=== PATIENT | male | born 1950 | race Caucasian/White ===

== ENCOUNTER 2016-10-26 11:34 | Emergency (ER) | payer OTHER ==
[2016-10-26] MEDS ORDERED: ONDANSETRON 4 MG/2 ML VIAL ONE (11:49)
--- NOTE | 2016-10-26 11:52 | CPEKG ---
Heart Rate: 72 RR Interval: 833 P-R Interval: 160 QRSD Interval: 104 QT Interval: 440 QTC Interval: 482 P Ola: 47 QRS Ola: 62 T Wave Ola: 45 EKG Severity - BORDERLINE ECG - EKG Impression: SINUS RHYTHM EKG Impression: BORDERLINE PROLONGED QT INTERVAL Electronically Signed By: Torin Wharton 26-Oct-2016 15:43:03
[2016-10-26] MEDS ORDERED: NS 1,000 ML IV ONE ×2 (11:59→14:22)
[2016-10-26] MEDS ORDERED: MECLIZINE HCL 25 MG TAB PO ONE ×2 (12:00→15:15)
[2016-10-26] MEDS ORDERED: ONDANSETRON 4 MG/2 ML VIAL IVP ONE (12:00)
[2016-10-26 12:07] LABS: % IMMATURE GRANULYOCYTES 0.5 % (0.0-1.1); ABSOLUTE IMMATURE GRANULOCYTES 0.03 10^3/uL (0.00-0.10); ADD DIFF? NO; ADD MORPH? NO; ADD SCAN? NO; ATYPICAL LYMPHOCYTE FLAG 10 (0-99); FRAGMENT RBC FLAG 0 (0-99); HEMATOCRIT 45.8 % (40.0-51.0); HEMOGLOBIN 16.3 g/dL (13.7-17.5); LEFT SHIFT FLG 10 (0-99); LIPEMIA HEMOLYSIS FLAG 90 (0-99); MEAN CELL HEMOGLOBIN 29.5 pg (27.9-34.1); MEAN CELL HEMOGLOBIN CONCENTR. 35.6 g/dL (32.4-36.7); MEAN PLATELET VOLUME 9.6 fL (8.7-11.7); PLATELET CLUMPS FLAG 10 (0-99); PLATELET COUNT 199 10^3/uL (150-400); RED BLOOD CELL COUNT 5.52 10^6/uL (4.40-6.38); RED CELL DISTRIBUTION WIDTH 12.1 % (11.5-15.2)
--- NOTE | 2016-10-26 12:09 | EDPHY ---
HPI/HX/ROS/PE/MDM Narrative: CHIEF COMPLAINT: Dizziness, nausea HPI: The patient is a 66 y/o male arriving with his family member complaining of dizziness and lightheadedness onset this morning. His symptoms are aggravated by opening his eyes, looking around, or any movement. His symptoms are alleviated by lying still with his eyes closed in bed. He has associated nausea with an episode of vomiting. He has a history of vertigo several years ago and say his symptoms feel similar. He denies headache, vision changes, chest pain, or fever. No other pertinent medical history. REVIEW OF SYSTEMS: Aside from elements discussed in the HPI, a comprehensive 10-point review of systems was reviewed and is negative. PMH: Vertigo SOCIAL HISTORY: Family member at bedside PHYSICAL EXAM: General:Patient is alert, in no acute distress. ENT:Eyes are normal to inspection. KRISTI. EOMI intact. No nystagmus. ENT inspection normal. Neck: Normal inspection. Full range of motion. Respiratory:No respiratory distress. Breath sounds normal bilaterally. Cardiovascular: Regular rate and rhythm. Strong peripheral pulses. Normal cap refill. Abdomen:The abdomen is nontender to palpation. There are no peritoneal signs. There are normal bowel sounds. Back: Normal to inspection. No tenderness to palpation. Skin: Normal color. No rash. Warm and dry. Extremities: Normal appearance. Full range of motion. Neuro: Oriented x3. Normal motor function. Normal sensory function. Normal [id number]. ED Course: IV established. Labs drawn including CBC, CHEM, troponin. 1L IV NS, 4mg IV Zofran, and 50mg PO Meclizine administered for symptoms. EKG ordered. The 12 lead EKG was interpreted by myself. See hard copy and/or "tracemaster" electronic copy for interpretation. 1430: Labs and EKG unremarkable. Will attempt to ambulate patient to see if symptoms have improved. On re-evaluation, patient states he is still unable to stand up or ambulate secondary to dizziness and nausea. We will treat him with an additional dose of meclizine. I recommended admission to the hospital, but the patient requests a few more hours of treatment here in the emergency department. I have signed the patient out to Dr. Arthur Mauro. I see no evidence for cerebellar CVA, acute coronary syndrome, head trauma or intracranial bleed. - Data Points Laboratory Results: Laboratory Results 10/26/16 11:53 10/26/16 11:53 10/26/16 11:53 WBC 6.52 10^3/uL (3.80-9.50) RBC 5.52 10^6/uL (4.40-6.38) Hgb 16.3 g/dL (13.7-17.5) Hct 45.8 % (40.0-51.0) MCV 83.0 fL (81.5-99.8) MCH 29.5 pg (27.9-34.1) MCHC 35.6 g/dL (32.4-36.7) RDW 12.1 % (11.5-15.2) Plt Count 199 10^3/uL (150-400) MPV 9.6 fL (8.7-11.7) Neut % (Auto) 63.5 % (39.3-74.2) Lymph % (Auto) 30.5 % (15.0-45.0) Bay % (Auto) 4.8 % (4.5-13.0) Eos % (Auto) 0.2 L % (0.6-7.6) Baso % (Auto) 0.5 % (0.3-1.7) Nucleat RBC Rel Count 0.0 % (0.0-0.2) Absolute Neuts (auto) 4.15 10^3/uL (1.70-6.50) Absolute Lymphs (auto) 1.99 10^3/uL (1.00-3.00) Absolute Monos (auto) 0.31 10^3/uL (0.30-0.80) Absolute Eos (auto) 0.01 L 10^3/uL (0.03-0.40) Absolute Basos (auto) 0.03 10^3/uL (0.02-0.10) Absolute Nucleated RBC 0.00 10^3/uL (0-0.01) Immature Gran % 0.5 % (0.0-1.1) Immature Gran # 0.03 10^3/uL (0.00-0.10) Sodium 143 mEq/L (134-144) Potassium 3.8 mEq/L (3.5-5.2) Chloride 108 mEq/L (97-110) Carbon Dioxide 23 mEq/l (22-31) Anion Gap 12 mEq/L (8-16) BUN 18 mg/dL (7-23) Creatinine 1.1 mg/dL (0.7-1.3) Estimated GFR > 60 Glucose 159 H mg/dL (70-100) Calcium 9.1 mg/dL (8.5-10.4) Troponin I < 0.012 ng/mL (0-0.034) Medications Given: Discontinued Medications Sodium Chloride (Ns) 1,000 mls @ 0 mls/hr IV ONCE ONE PRN Reason: Wide Open Stop: 10/26/16 12:00 Last Admin: 10/26/16 12:03 Dose: 1,000 mls Sodium Chloride (Ns) 1,000 mls @ 0 mls/hr IV ONCE ONE PRN Reason: Wide Open Stop: 10/26/16 14:23 Last Admin: 10/26/16 14:24 Dose: 1,000 mls Meclizine HCl (Meclizine Hcl) 50 mg PO EDNOW ONE Stop: 10/26/16 12:01 Last Admin: 10/26/16 12:10 Dose: 50 mg Ondansetron HCl (Zofran) 4 mg IVP EDNOW ONE Stop: 10/26/16 12:01 Last Admin: 10/26/16 12:04 Dose: 4 mg General Time Seen by Provider: 10/26/16 11:53 Initial Vital Signs: Initial Vital Signs Temperature (C) 36.9 C 10/26/16 11:36 Heart Rate 75 10/26/16 11:36 Respiratory Rate 18 10/26/16 11:36 Blood Pressure 165/100 H 10/26/16 11:36 O2 Sat (%) 98 10/26/16 11:36 O2 Delivery Mode Room Air Allergies/Adverse Reactions: No Known Allergies Allergy (Verified 10/26/16 11:36) Home Medications: Medication Instructions Recorded Lipitor 09/11/16 Meclizine HCl [Meclizine HCl 25 mg 50 mg PO BID PRN #14 tab 10/26/16 (RX,OTC)] Ondansetron Odt [Zofran Odt] 4 mg PO Q4PRN PRN #14 tab 10/26/16 Departure - Departure Disposition: Home, Routine, Self-Care Clinical Impression: Vertigo Condition: Good Instructions: Vertigo (ED) Additional Instructions: 1. Take Meclizine as prescribed when needed for dizziness. 2. Use Zofran as prescribed when needed for nausea or vomiting. 3. Follow up with your primary care provider or neurologist for symptoms not improved over the next 2-3 days. 4. Return to the ED for severe headache, chest pain, fainting, or other worsening of condition. Referrals: Kervin Munson MD [Primary Care Provider] - As per Instructions Neftali Sherwood MD [Medical Doctor] - As per Instructions Report Scribed for: Torin Wharton Report Scribed by: Leonor Alamo Date of Report: 10/26/16 Time of Report: 11:56 Physician Review and Approval Statement: Portions of this note were transcribed by an ED scribe. I personally performed the history, physical exam, and medical decision making; and confirm the accuracy of the information in the transcribed note.
[2016-10-26 12:19] LABS: ANION GAP 12 mEq/L (8-16); CALCIUM 9.1 mg/dL (8.5-10.4); CARBON DIOXIDE 23 mEq/l (22-31); CHLORIDE 108 mEq/L (97-110); CREATININE 1.1 mg/dL (0.7-1.3); GLOMERULAR FILTRATION RATE > 60; GLUCOSE 159 mg/dL (70-100); POTASSIUM 3.8 mEq/L (3.5-5.2); SODIUM 143 mEq/L (134-144)
[2016-10-26 12:31] LABS: TROPONIN I < 0.012 ng/mL (0-0.034)
[2016-10-26 14:25] VITALS: O2SAT 96
[2016-10-26 17:08] VITALS: BP 136/79; PULSE 77; RESP 18; TEMP 97.5
== END 2016-10-26 17:10 | disposition home or self-care (01) ==
DX: R42 Dizziness and giddiness (principal)
CPT/HCPCS: 93005; 96361; 96374; 99284; J2405

== ENCOUNTER 2017-05-20 17:33 | Emergency (ER) | payer OTHER ==
[2017-05-20 17:41] VITALS: BP 154/98; PULSE 97; RESP 16; TEMP 97.7; O2SAT 95
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
== END 2017-05-20 18:18 | disposition home or self-care (01) ==
LOC: EDUNIT#
DX: S00.31XA Abrasion of nose, initial encounter (principal); Y04.0XXA Assault by unarmed brawl or fight, initial encounter